=== PATIENT | male | born 1975 | race Caucasian/White ===

== ENCOUNTER 2017-01-05 21:36 | Emergency (ER) | payer MEDICAID ==
[~2017-01-05] VITALS: Ht 167.6 cm; Wt 90.9 kg
[2017-01-05 21:47] VITALS: Ht 167.6 cm; Wt 90.9 kg
[2017-01-05] MEDS ORDERED: LORAZEPAM 1 MG TAB PO ONE (22:30)
--- NOTE | 2017-01-05 23:11 | ERD ---
ER Documentation Chief Complaint Date/Time DATE: 01/05/17 TIME: 23:11 Chief Complaint wong robertson/mandy, had 12 pack of beer yesterday. states "i feel shakey" HPI Patient is a 41-year-old male with no medical problems who presents saying that he is not feeling well. He says "I am shaky". He said that he cannot sleep. He said that he was drinking and using crystal meth yesterday. He said he used crystal meth for the first time yesterday. Upon review of old medical records this is the patient's first visit to the emergency department. He does not currently have a primary doctor. ROS All systems reviewed and are negative except as per history of present illness. Allergies Allergies: Coded Allergies: No Known Allergy (Unverified , 01/05/17) PMhx/Soc Medical and Surgical Hx: pt denies Medical Hx, pt denies Surgical Hx History of Surgery: No Anesthesia Reaction: No Hx Neurological Disorder: No Hx Respiratory Disorders: No Hx Cardiac Disorders: No Hx Psychiatric Problems: No Hx Miscellaneous Medical Probl: No Hx Alcohol Use: Yes (12 pack daily) Hx Substance Use: No Hx Tobacco Use: No Smoking Status: Never smoker FmHx Family History: diabetes Physical Exam Vitals Vital Signs Date Time Temp Pulse Resp B/P Pulse Ox O2 Delivery O2 Flow Rate FiO2 01/05/17 21:47 98.3 79 22 136/86 93 Physical Exam Const: No acute distress Head: Atraumatic Eyes: Normal Conjunctiva ENT: Normal External Ears, Nose and Mouth. Neck: Full range of motion..~ No meningismus. Resp: Clear to auscultation bilaterally Cardio: Regular rate and rhythm, no murmurs Abd: Soft, non tender, non distended. Normal bowel sounds Skin: No petechiae or rashes Back: No midline or flank tenderness Ext: No cyanosis, or edema Neur: Awake and alert Psych: Anxious Results 24 hrs Laboratory Tests Test 01/05/17 22:12 Bedside Glucose 98mg/dL Current Medications Medications (Trade) Dose Ordered Sig/Rody Route PRN Reason Start Time Stop Time Status Last Admin Dose Admin Lorazepam (Ativan) 1 mg ONCE ONCE PO 01/05/17 22:30 01/05/17 22:31 DC 01/05/17 22:39 Procedures/MDM EKG read by me: Rate/Rhythm: Regular rate and rhythm at a rate of 66 Intervals: Normal Impression: No evidence of ischemia or arrhythmia Accu-Chek is normal. Smoking Cessation Therapy: Pt. was lectured for greater than 3 minutes on the health risks of continued smoking and the benefits of cessation. Patient is a 41-year-old male who presents with feeling shaky after methamphetamine use. I told the patient that he should stop using methamphetamines as this is most likely the cause of his insomnia and shakiness. The patient was given Ativan by mouth for his symptoms. His EKG showed no signs of acute ischemia or arrhythmia. Accu-Chek was normal and I doubt hypo-or hyper kalemia. Departure Diagnosis: Primary Impression: Shakiness Additional Impression: Drug use Condition: Fair Patient Instructions: Understanding Methamphetamine Abuse and Addiction Ref[facility]: [facility] Usted se fraser hecho un examen mdico de control que le indica que no est en soham condicin que requiera tratamiento urgente en el Departamento de Emergencia. Un estudio ms profundo y el tratamiento de chávez condicin pueden esperar sin ningn riesgo hasta que usted sea atendida/o en el consultorio de cáhvez mdico o soham cl hector. Es responsabilidad suya arreglar soham cammie para el seguimiento del gabriel. MANEJO DE CONDICIONES NO URGENTES EN EL FUTURO 1) Si usted tiene un mdico de atencin primaria: Usted debera llamar a chávez mdico de atencin primaria antes de venir al departamento de emergencia. Despus de las horas de consultorio, chávez doctor o chávez asociado/a est disponible por telfono. El mdico o enfermero de elizabeth en el servicio telefnico puede asesorarle por sally medio para atender el problema, o gabriel contrario se puede programar soham cammie. 2) Si usted no tiene un mdico de atencin primaria: Llame al mdico o clnica de referencia que aparece abajo mariela las horas de consultorio para hacer soham cammie para que le vean. CLINICAS: [facility] [phone] [facility] [phone] [facility] [phone] [place] [address] [phone] [place] [address] [phone] [place] [id number] [phone] Additional Instructions: Llame al doctor MAANA y marcella soham CAMMIE PARA DENTRO DE 1-2 [place].Dgale a la secretaria que nosotros le instruimos hacer esta cammie.Avise o llame si chávez condicin se empeora antes de la cammie. Regresa aqui si peor o no mejor. IDANIA POSADAS MD Jan 05, 2017 23:11
== END 2017-01-05 23:29 | disposition home or self-care (01) ==
LOC: E/R 21:36
DX: R25.1 Tremor, unspecified (principal); F15.90 Other stimulant use, unspecified, uncomplicated; R42 Dizziness and giddiness
CPT/HCPCS: 82962; 93005; Z7610